=== PATIENT | female | born 1955 | race Caucasian/White ===

== ENCOUNTER → 2019-11-14 | Day surgery (SDC) | payer BC ==
[~2019-11-14] MED LIST: ATORVASTATIN CA20 MG PO; BIOTIN2500 MCG; FENTANYL CITRATE/PF 100MCG/2 ML INJ IV ONE; LATANOPROST2.5 ML OP; LISINOPRIL-HCT1 EAC2; MECLIZINE HCL12.5 MG PO; OXYBUTYNIN CHLOR5 MG PO; POTASSIUM GLUC500 GM; PROPOFOL IV EMULSION 10 MG/ML 50 ML VIAL ONE; TIMOLOL MALEATE5 M2
[2019-11-14 09:35] VITALS: BP 124/72
--- NOTE | 2019-11-14 16:48 | Operative Report ---
DATE OF PROCEDURE: SURGEON: John Delcid MD NAME OF THE PROCEDURE: EGD colonoscopy. PREOPERATIVE DIAGNOSES: The patient with dysphagia and colon cancer screening. Family history of colon cancer, status post history of lap band. DESCRIPTION OF PROCEDURE: After informed written consent, standard video Olympus gastroscope was introduced into the mouth, esophagus, stomach into the 2nd portion of the duodenum. The 1st and 2nd portion of the duodenum appeared to be normal. The antrum showed mild gastritis and biopsies were done. Body of fundus appeared to be unremarkable. Evidence of previous lap band was noted. There was evidence of reflux esophagitis grade 1-2 and biopsies were done to rule out short-segment Sainz's. IMPRESSION: Esophagitis, gastritis, status post lap band. PROCEDURE: Colonoscopy. DESCRIPTION OF PROCEDURE: A standard video Olympus colonoscope was introduced per rectum and all the way into the terminal ileum. Terminal ileum, ileocecal valve appeared to be normal. The splenic flexure showed a 6 mm colon polyp removed by cold snare. The proximal ascending colon showed a 1 cm polyp removed by a hot snare. The mid ascending colon showed a 2 cm polyp removed with saline assisted polypectomy hot snare. The sigmoid colon showed two 6 mm polyp removed with cold snare. The distal rectum just a cm above the anorectal junction showed a 1 cm polyp removed with hot snare. Scattered diverticulosis was seen in the descending sigmoid colon with moderate in size. IMPRESSION: Multiple colon polyps. One Endoclip applied to the polyp in the mid ascending colon. Saline assisted polypectomy applied to the mid ascending colon. RECOMMENDATIONS: Check the pathology. Avoid aspirin, NSAIDs for two weeks and repeat colonoscopy in two years. PPI lansoprazole 15 mg [id number] daily and if symptoms persist, then consider complete removal of the lap band. Further recommendations will be based on patient's clinical course. Follow up in the office in 3-4 weeks. John Delcid MD SR/MODL /[id number]
== END | disposition home or self-care (01) ==
LOC: OR 05:56
PROVIDERS: ATTEND Internal Medicine Gastroenterology
DX: K21.0 Gastro-esophageal reflux disease with esophagitis (principal); D12.2 Benign neoplasm of ascending colon; D12.3 Benign neoplasm of transverse colon; K62.1 Rectal polyp; K29.70 Gastritis, unspecified, without bleeding; K57.30 Diverticulosis of large intestine without perforation or abscess without bleeding; Z98.84 Bariatric surgery status; Z71.3 Dietary counseling and surveillance; E66.01 Morbid (severe) obesity due to excess calories; I10 Essential (primary) hypertension; R06.00 Dyspnea, unspecified; E78.00 Pure hypercholesterolemia, unspecified; Z88.6 Allergy status to analgesic agent; Z01.810 Encounter for preprocedural cardiovascular examination; Z68.42 Body mass index [BMI] 45.0-49.9, adult; Z87.891 Personal history of nicotine dependence; Z80.0 Family history of malignant neoplasm of digestive organs
CPT/HCPCS: 43239; 45381; 45385; 93005; J2704; J3010